=== PATIENT | female | born 1985 | race Caucasian/White ===

== ENCOUNTER 2024-08-03 19:45 | Day surgery (SDC) | payer OTHER ==
[2024-08-03 20:38] VITALS: BMI 38.2
== END 2024-08-03 21:28 | disposition home or self-care (01) ==
LOC: CSHLD/OP 19:45
PROVIDERS: ATTEND Family Medicine
DX: O99.891 Other specified diseases and conditions complicating pregnancy (principal); R06.02 Shortness of breath; O47.03 False labor before 37 completed weeks of gestation, third trimester; Z79.899 Other long term (current) drug therapy; Z3A.35 35 weeks gestation of pregnancy
CPT/HCPCS: 99282

== ENCOUNTER 2024-08-18 14:16 | Inpatient (IN) | payer OTHER ==
[2024-08-18 14:51] VITALS: BMI 38.7
[2024-08-18] MEDS ORDERED: Lidocaine 1% (PF) 30 ML VIAL SC PRN (18:30)
[2024-08-18] MEDS ORDERED: Carboprost 250 MCG/ML AMP IM PRN (18:30)
[2024-08-18] MEDS ORDERED: Methylergonovine 0.2 MG/ML VIAL IM PRN (18:30)
[2024-08-18] MEDS ORDERED: Diphenoxylate HCl/Atropine Tablet PO PRN (18:30)
[2024-08-18] MEDS ORDERED: Acetaminophen 500 MG TAB PO PRN (18:30)
[2024-08-18] MEDS ORDERED: Oxytocin 30 units/NS 500 ML 500 ML IV SCH ×2 (18:30)
[2024-08-18] MEDS ORDERED: Promethazine HCl 25 MG/ML VIAL IM PRN (18:30)
[2024-08-18] MEDS ORDERED: Tranexamic Acid 1,000 MG/10 ML VIAL IVP PRN (18:30)
[2024-08-18] MEDS ORDERED: hydrALAZINE 20 MG/ML VIAL SLOW IVP PRN (18:30)
[2024-08-18] MEDS ORDERED: Misoprostol 200 MCG TAB PR PRN (18:30)
[2024-08-18] MEDS ORDERED: Ibuprofen 800 MG TAB PO PRN (18:33)
[2024-08-18] MEDS ORDERED: HYDROcodone/Acetaminophen 5/325 mg Tablet PO PRN (18:33)
[2024-08-18 18:54] LABS: Hematocrit 33.1 % (34.9-44.5); Hemoglobin 11.1 g/dL (12.0-15.5); Mean Corpuscular HGB CONC 33.5 g/dL (32.0-36.0); Mean Corpuscular Volume 83.4 fL (81.6-98.3); Platelet Count 232 10x3/uL (150-450); Red Blood Cell (RBC) Count 3.97 10x6/uL (3.90-5.03); White Blood Cell (WBC) Count 10.1 10x3/uL (3.5-10.5)
[2024-08-18 19:17] LABS: Hep B Surf Ag - L&D Non-Reactive S/CO (NonReactive); Syphilis Antibody Nonreactive (Nonreactive); Syphilis Antibody Index 0.13 S/CO (<1.00 Non-Reactive)
[2024-08-18] MEDS: Misoprostol 100 MCG TAB PO SCH (21:51)
[2024-08-19] MEDS: Penicillin G Potassium 5 MILL.UNITS in Sodium Chloride 0.9% 100 ML IVPB SCH (03:05)
[2024-08-19] MEDS: fentaNYL 50 mcg/mL 1 mL Vial SLOW IVP PRN (03:11)
[2024-08-19] MEDS: fentaNYL/Ropivacaine Epidural 100 ML ONE (03:32)
[2024-08-19] MEDS ORDERED: Naloxone HCl 0.4 mg/ml Vial IVP PRN ×2 (03:58)
[2024-08-19] MEDS ORDERED: Promethazine HCl 25 MG/ML VIAL IM PRN ×2 (03:58→15:31)
[2024-08-19] MEDS ORDERED: Moisturizing Cream (Eucerin) 113 GM JAR TOP PRN (03:58)
[2024-08-19] MEDS ORDERED: Ondansetron PF 4 MG/2 ML Vial IVP PRN ×2 (03:58→15:31)
[2024-08-19] MEDS ORDERED: ePHEDrine Sulfate 50 MG/10 ML VIAL SLOW IVP PRN (03:58)
[2024-08-19] MEDS ORDERED: Lactated Ringer's 500 ML IV PRN (03:58)
[2024-08-19] MEDS ORDERED: diphenhydrAMINE 50 MG/ML VIAL IVP PRN (03:58)
[2024-08-19] MEDS ORDERED: fentaNYL 2 mcg/Ropivacaine 0.2% Epidural 100 ML CADD EPIDURAL SCH (04:00)
[2024-08-19] MEDS ORDERED: Communication Order-Pharmacy FS SCH (04:00)
[2024-08-19] MEDS: Lactated Ringer's 1,000 ML IV SCH (04:20)
[2024-08-19] MEDS: Penicillin G 2.5 MILL.units 2.5 MILL.UNITS in Premix 1 BAG IVPB SCH (07:47)
[2024-08-19] MEDS ORDERED: Bupivacaine/Epinephrine 0.25% 30 ML VIAL ONE (12:00)
[2024-08-19] MEDS: Ondansetron PF 4 MG/2 ML Vial IVP PRN (12:11)
[2024-08-19] MEDS: Oxytocin 30 units/NS 500 ML 500 ML IV SCH (12:21)
[2024-08-19] MEDS ORDERED: Boostrix 0.5 ML (Tdap) VIAL (>/=7 yrs of age) IM ONE (15:31)
[2024-08-19] MEDS ORDERED: hydrALAZINE 20 MG/ML VIAL SLOW IVP PRN (15:31)
[2024-08-19] MEDS ORDERED: diphenhydrAMINE 25 MG CAP PO PRN (15:31)
[2024-08-19] MEDS ORDERED: Oxytocin 30 units/NS 500 ML 500 ML IV SCH (15:31)
[2024-08-19] MEDS ORDERED: Milk Of Magnesia 30 ML UDCUP PO PRN (15:31)
[2024-08-19] MEDS ORDERED: Bisacodyl 10 MG SUPP PR PRN (15:31)
[2024-08-19] MEDS ORDERED: Lanolin Ointment 7 GM TUBE TOP PRN (15:31)
[2024-08-19] MEDS: Benzocaine-Menthol 82.5 ML CAN TOP PRN (16:08)
[2024-08-19] MEDS: Acetaminophen 325 MG TAB PO PRN (16:09)
[2024-08-19] MEDS: Ferrous Sulfate 325 MG TAB PO SCH (17:03)
[2024-08-19] MEDS: Ibuprofen 800 MG TAB PO SCH (20:53)
[2024-08-19] MEDS: Docusate 100 MG CAP PO SCH (20:53)
[2024-08-19] MEDS: HYDROcodone/Acetaminophen 5/325 mg Tablet PO PRN (21:28)
[2024-08-20] MEDS: Prenatal Vitamin 1 TAB PO SCH (08:18)
[2024-08-20 11:52] VITALS: BP 118/56; TEMP 98.3
[2024-08-20] MEDS: Measles/Mumps/Rubella 10 MCG/0.5 ML VIAL SC ONE (18:50)
== END 2024-08-20 19:03 | disposition home or self-care (01) | DRG 807 ==
LOC: CSHLD/OP 14:16 → CSHLD 17:14 → CSHPP 08-19 13:55
PROVIDERS: ADMIT Family Medicine; ATTEND Family Medicine
PROC: 10E0XZZ Delivery of Products of Conception, External Approach (ICD-10-PCS; principal; 2024-08-19)
PROC: 0KQM0ZZ Repair Perineum Muscle, Open Approach (ICD-10-PCS; 2024-08-19)
DX: O36.8130 Decreased fetal movements, third trimester, not applicable or unspecified (principal); Z37.0 Single live birth; Z3A.38 38 weeks gestation of pregnancy; Z79.82 Long term (current) use of aspirin; O99.824 Streptococcus B carrier state complicating childbirth; O76 Abnormality in fetal heart rate and rhythm complicating labor and delivery; O70.1 Second degree perineal laceration during delivery
CPT/HCPCS: 51702; 59025; 76819; 85027; 86780; 86850; 86900; 86901; 87340; 90707; 99285; J2405; J2540; J2590; J3010; J7120